=== PATIENT | male | born 1975 | race Caucasian/White ===

== ENCOUNTER → 2024-03-15 14:43 | Outpatient (REF) | payer SELFPAY | LOC: RAD 14:43 | PROVIDERS: ATTENDING PHYSICIAN Physician Assistant | DX: Z13.6 Encounter for screening for cardiovascular disorders (principal); I10 Essential (primary) hypertension; Z82.49 Family history of ischemic heart disease and other diseases of the circulatory system; E66.9 Obesity, unspecified; R07.89 Other chest pain | CPT/HCPCS: 75571 ==

== ENCOUNTER → 2024-03-19 14:56 | Outpatient (REF) | payer OTHER, SELFPAY | LOC: RCS 14:56 | PROVIDERS: ATTENDING PHYSICIAN Physician Assistant | DX: Z13.6 Encounter for screening for cardiovascular disorders (principal) | CPT/HCPCS: 93017 ==

== ENCOUNTER → 2024-06-21 07:10 | Outpatient (REF) | payer OTHER, SELFPAY | LOC: RCS 07:10 | PROVIDERS: ATTENDING PHYSICIAN Internal Medicine Cardiovascular Disease; FAMILY PHYSICIAN Physician Assistant | DX: R93.1 Abnormal findings on diagnostic imaging of heart and coronary circulation (principal) | CPT/HCPCS: 93306 ==

== ENCOUNTER 2025-06-01 19:55 | Emergency (ER) | payer OTHER, SELFPAY ==
[2025-06-01 19:59] VITALS: BP 159/103
[2025-06-01 20:40] VITALS: BP 154/78; BMI 34.1
--- NOTE | 2025-06-01 20:52 | ED.GENMED ---
ED Provider Triage
<Lauri Muñoz MD, Resident - Last Filed: 06/01/25 21:54>
-
Patient seen by provider in Triage?: Seen in Triage
History of Present Illness
<Lauri Muñoz MD, Resident - Last Filed: 06/01/25 21:54>
General
Chief Complaint: Musculo-Skeletal Complaint
Source: patient
Exam Limitations: none
Time Seen by Provider: 06/01/25 20:37
History of Present Illness
History of Present Illness:
50-year-old male who presents for pain in the middle of his left calf. Was playing in the [employer] lac[employer] league and was sprinting when he felt a sudden sharp stabbing pain in his left calf. Gets worse on exertion and movement, relieved on rest.
No numbness, tingling, weakness, fever, shortness of breath, chest pain, nausea, vomiting. Patient is able to ambulate.
Past History
<Lauri Muñoz MD, Resident - Last Filed: 06/01/25 21:54>
Past History
ED Past Medical History: Asthma
ED Past Surgical History: Other (Upper endoscopy)
Social History
Tobacco: Non-smoker
Alcohol: None
Drug: None
Personal:
Living: with family
Employment: Employed
Family History
Family History: Other (Noncontributory)
Review of Systems
<Lauri Muñoz MD, Resident - Last Filed: 06/01/25 21:54>
Review of Systems
Allergies reviewed?: Yes
All Other Systems: ROS reviewed and negative except as documented in HPI and ROS
Phy Exam
<Lauri Muñoz MD, Resident - Last Filed: 06/01/25 21:54>
General Physical Exam
General Presentation: well appearing and no apparent distress
General Skin: warm
General Mental: alert
Cardiovascular Exam
Cardiovascular Exam: regular rate/rhythm and no edema
Pulmonary Exam
Pulmonary Exam: lungs clear and no respiratory distress
Gastrointestinal Exam
Gastrointestinal Exam: normal bowel sounds, non tender, soft and non distended
Neurological Exam
Neurological Exam: alert and oriented x3
Musculoskeletal Exam
Musculoskeletal Exam: other (Left calf is slightly erythematous, no swelling, no visible deformity. Decreased range of motion on knee flexion, Bazan test is negative. Tenderness upon squeezing the calf muscle of left leg.)
Course
<Lauri Muñoz MD, Resident - Last Filed: 06/01/25 21:54>
Orders/Labs/Results
Orders:
Orders
06/01/25 20:58
Knee, Left 4 or More Views [CR Knee - Left 4 Or More View*] Urgent
Comment:
Reason For Exam: knee pain after lacrosse
06/01/25 21:46
Crutches-Treatment ONCE
Knee Immobilizer Left-Treatmen ONCE
Vital Signs
Initial and Last Documented VS:
Initial Vital Signs
Temp Pulse Resp BP Pulse Ox
98.3 F 82 18 159/103 97
06/01/25 19:59 06/01/25 19:59 06/01/25 19:59 06/01/25 19:59 06/01/25 19:59
Last Documented Vital Signs
Temp Pulse Resp BP Pulse Ox
98.3 F 91 18 154/78 99
06/01/25 19:59 06/01/25 20:40 06/01/25 20:40 06/01/25 20:40 06/01/25 20:55
<Caryl Salinas DO - Last Filed: 06/01/25 22:01>
Orders/Labs/Results
Orders:
Orders
06/01/25 20:58
Knee, Left 4 or More Views [CR Knee - Left 4 Or More View*] Urgent
Comment:
Reason For Exam: knee pain after lacrosse
06/01/25 21:46
Crutches-Treatment ONCE
Knee Immobilizer Left-Treatmen ONCE
Vital Signs
Initial and Last Documented VS:
Initial Vital Signs
Temp Pulse Resp BP Pulse Ox
98.3 F 82 18 159/103 97
06/01/25 19:59 06/01/25 19:59 06/01/25 19:59 06/01/25 19:59 06/01/25 19:59
Last Documented Vital Signs
Temp Pulse Resp BP Pulse Ox
98.3 F 91 18 154/78 99
06/01/25 19:59 06/01/25 20:40 06/01/25 20:40 06/01/25 20:40 06/01/25 20:55
<Lauri Muñzo MD, Resident - Last Filed: 06/01/25 21:54>
MDM/Problems Addressed
Differential Diagnosis Includes:
gastrocnemius tear, Achilles tendon rupture, DVT, anterior/ posterior cruciate ligament tear, bakers cyst rupture
MDM/Problems Addressed:
- Based on patients history, and physical exam suspect this to be gastrocnemius tear
- Advised patient on NSAIDs, rest, elevation of affected extremity, and ice, follow up with PCP within 7 days.
<Lauri Muñoz MD, Resident - Last Filed: 06/01/25 21:54>
*Pulse Oximetry
SaO2: 99
Oxygen Mode of Delivery: Room air
Patient hypoxic: no
*Critical Care Note
Total Time (30-74mins, 75-104mins- exclusive of procedures): Not Applicable
ED Attending Note
<Lauri Muñoz MD, Resident - Last Filed: 06/01/25 21:54>
-
Portions of this chart may have been created with voice recognition software.� Occasional wrong word or��sound alike� substitutions may have occurred due to the inherent limitations of voice recognition software.
<Caryl Salinas, DO - Last Filed: 06/01/25 22:01>
ED Attending Note
Patient seen and examined by attending physician: Yes
I performed the substantive portion of visit, reviewed & personally made and approve the management plan that is documented in note by myself or JAVIER.: Yes
I performed a history and physical exam of patient and discussed management with resident, I reviewed resident's note and agree with documented findings and plan of care.: Yes
ED Attending Note:
50-year-old male without significant past medical history presenting to the emergency department for left calf pain. Patient reports prior to arrival he was playing lacrosse and a parent lacrosse game. He did not stretch, and while playing,
suddenly felt a pop in the left calf. He has been able to bear weight, however notes pain with dorsiflexion and plantarflexion. Denies any pain to the Achilles. Notes prior minor injuries to the knee in the past. Denies numbness or tingling. He
took ibuprofen prior to arrival. Denies any additional injuries
Vital signs significant for mild hypertension. On exam patient is resting comfortably, no acute distress. Focal tenderness to left calf. Minimal swelling. No significant ecchymosis. Range of motion to the knee is intact. No tenderness to the
knee. No tenderness to the Achilles. Distal sensation and pulses intact. No erythema or warmth. Ultimately suspect gastrocnemius injury, likely partial tear given that patient is able to bear weight. X-ray of the knee obtained, no acute
abnormality, no avulsion fractures. Without present concern for Achilles injury. Feel stable for discharge and outpatient supportive therapy. Provide knee immobilizer and crutches. Otherwise advising outpatient orthopedic follow-up for potential
MRI imaging if symptoms persist to ensure muscular tear. Return precautions discussed patient verbalized understanding
Discharge Plan
Departure
Patient with high blood pressure during this ER visit?: Yes
Condition: Good
Discharge Problem:
Gastrocnemius muscle tear, Gastrocnemius muscle strain
Instructions: Lower Extremity Muscle Strain (DC), BLOOD PRESSURE
Prescriptions:
No Action
multivitamin [Daily Multiple] 1 EACH tablet
1 ea PO DAILY
albuterol sulfate [ProAir HFA] 8.5 GM HFA aerosol inhaler
8.5 gm IH Q4HPRN PRN (Reason: Wheezing)
sodium chloride [Saline Nasal [place]] 30 ML aerosol,spray
30 ml NS Q4HPRN PRN (Reason: stuffy nose)
fexofenadine-pseudoephedrine [Jazmin-D 24 Hour] 1 EACH tablet extended release 24 hr
1 ea PO DAILY
prednisone 20 MG tablet
40 mg PO DAILY Qty: 8 0RF
epinephrine [EpiPen] 0.3 MG/0.3/SYRINGE auto-injector
0.3 mg IM PER PROTOCOL Qty: 1 1RF
Referrals:
Javi Gupta MD [Active, Orthopedics]
Marcella Ha PA-C [Family Provider, Internal Medicine]
Activity Restrictions/Additional Instructions:
You were seen for sudden onset left calf pain that occurred while playing sports. Vitals stable and afebrile. Physical exam showed pain on squeezing of the left calf. X ray of left knee showed no evidence of acute fracture or dislocation. Suspect
that this is due to strain/ partial tear of gastrocnemius muscle. Follow up with Dr. Gupta within 7 days. Reccomend Please return to ER if increasing pain, weakness, inability to ambulate, fever, chills, nausea, vomiting, chest pain, shortness of
breath.
Thank you for visiting the Emergency Department at [facility].
1. Please schedule a follow up appointment as directed. Call first thing tomorrow morning to make an appointment.
2. If indicated, please take your medications as instructed and indicated on discharge paperwork.
3. If any of your symptoms do not improve, or persist, or become more severe within 6-12 hours, please return to the emergency department for further care.
4. Please return to the emergency department if you develop a headache, neck pain/stiffness, fever greater than 100.4F, chest pain, shortness of breath, persistent nausea, vomiting, slurred speech, difficulty walking, numbness/tingling, weakness,
signs of infection or any other symptoms that are worrisome to you.
Please call [phone] if you have any questions.
Interventions
Interventions:
*Risk Screen - Suicide Last Done: 06/01/25 20:40
*General Assessment Last Done: 06/01/25 20:40
*Neglect/Abuse Screening Last Done: 06/01/25 20:40
*ED- Fall Risk Assessment Last Done: 06/01/25 20:40
*ED COVID-19 Vaccine History Last Done: 06/01/25 20:40
*ED Influenza Vaccine History Last Done: 06/01/25 20:40
ED-Musculoskeletal Assessment Last Done: 06/01/25 20:46
Discharge Date and Time
Print Language: SWEDISH
[2025-06-01 22:00] VITALS: BP 147/85
== END 2025-06-01 22:10 | disposition home or self-care (01) ==
LOC: EMR 19:55
PROVIDERS: EMERGENCY PHYSICIAN Student in an Organized Health Care Education/Training Program; FAMILY PHYSICIAN Physician Assistant
DX: S86.119A Strain of other muscle(s) and tendon(s) of posterior muscle group at lower leg level, unspecified leg, initial encounter (principal); X58.XXXA Exposure to other specified factors, initial encounter; J45.909 Unspecified asthma, uncomplicated; Y92.328 Other athletic field as the place of occurrence of the external cause; Y93.65 Activity, lacrosse and field hockey
CPT/HCPCS: 99283; 73564